=== PATIENT | male | born 1985 ===

== ENCOUNTER 2019-08-17 16:27 | Emergency (ER) | payer SELFPAY ==
[~2019-08-17] VITALS: Ht 182.8 cm; Wt 90.7 kg
[2019-08-17] MEDS ORDERED: TETANUS,DIPTH,PERTUSS P/F (BOOSTRIX) 0.5 ML VIAL IM ONE (17:00)
--- NOTE | 2019-08-17 17:00 | ED Upper Extremity ---
General Chief Complaint: Laceration Stated Complaint: L ARM LAC Source: patient Exam Limitations: no limitations History of Present Illness Date Seen by Provider: Aug 17, 2019 Time Seen by Provider: 16:59 Initial Comments To ER with a laceration to the volar proximal left forearm from a jacob knife while working on his own roof at home. Tetanus not up-to-date. Onset: just prior to arrival Severity: moderate Pain/Injury Location: left wrist Method of Injury: unknown Allergies and Home Medications Allergies Coded Allergies: No Known Drug Allergies (Unverified , 08/17/19) Home Medications Cephalexin 500 Mg Capsule, 500 MG PO TID Prescribed by: CLARICE SILVA on 08/17/19 [id number] Patient Home Medication List Home Medication List Reviewed: Yes Review of Systems Constitutional: see HPI EENTM: see HPI Respiratory: no symptoms reported Cardiovascular: no symptoms reported Genitourinary: no symptoms reported Musculoskeletal: see HPI Skin: see HPI Psychiatric/Neurological: No Symptoms Reported Past Hqsrieo-Dxgkqy-Oguacx Hx Patient Social History Recent Foreign Travel: No Contact w/Someone Who Travel: No Physical Exam Vital Signs Vital Signs - First Documented 08/17/19 16:30 Temp 36.5 Pulse 75 Resp 16 B/P (MAP) 132/86 (101) Pulse Ox 99 O2 Delivery Room Air Capillary Refill : Height, Weight, BMI Height: '" Weight: lbs. oz. kg; BMI Method: General Appearance: WD/WN, no apparent distress Neck: non-tender, full range of motion Respiratory: no respiratory distress, no accessory muscle use Gastrointestinal: normal bowel sounds, non tender Back: no vertebral tenderness Shoulder: normal inspection, non-tender Elbow/Forearm: Left, soft tissue tenderness (R proximal left forearm there is about a 1.5 severe laceration down to the subcutaneous tissue and likely down to the muscle but I'm not able to visualize this. I suspect muscle involvement because there seems to be a bit of swelling proximal to this consistent with a little hematoma. No foreign body identified. Wound irrigated with 100 mL of saline. Sutured with 3 simple interrupted sutures size 4-0 Prolene. Strong radial and ulnar pulses, 2+. Normal flexion of the wrist and each finger. Used stratus language line for translation while obtaining history of present illness and physical exam.) Wrist: Yes normal inspection, Yes non-tender Hand: normal inspection, non-tender, Left Neurologic/Psychiatric: alert, normal mood/affect, oriented x 3 Skin: normal color, warm/dry Procedures/Interventions Wound Location: Upper Extremities Wound Length (cm): 1.5 Wound's Depth, Shape: linear, sub Q Wound Explored: clean Irrigated w/ Saline (ccs): 100 Anesthesia: 1% Lidocaine Volume Anesthetic (ccs): 3 Suture: Prolene Suture Size: 4-0 Number of Sutures: 3 Layer Closure?: 1 Number Deep Layer Sutures: 0 Progress/Results/Core Measures Results/Orders My Orders Orders - CLARICE SILVA APRN Dipht,Pertuss(Acell),Tet Adult (Boostrix (08/17/19 17:00) Vital Signs/I&O Departure Impression Primary Impression: Laceration of arm Qualified Codes: S41.112A - Laceration without foreign body of left upper arm, initial encounter Disposition: 01 HOME, SELF-CARE Condition: Stable Departure-Patient Inst. Decision time for Depature: 17:07 Referrals: NO,LOCAL PHYSICIAN (PCP/Family) Primary Care Physician Patient Instructions: Laceration Repair With Stitches (DC) Add. Discharge Instructions: 1. Return to ER for any concerns 2. Return to ER in 10 days to have the stitches removed. Take antibiotics as directed All discharge instructions reviewed with patient and/or family. Voiced understanding. Scripts Cephalexin (Keflex) 500 Mg Capsule 500 MG PO TID, #9 CAP Prov: CLARICE SILVA APRN 08/17/19 CLARICE SILVA APRN Aug 17, 2019 17:00
[2019-08-17] MEDS ORDERED: CEPH-507 PO (17:09)
[2019-08-17 17:20] VITALS: BP 132/86
== END 2019-08-17 17:20 | disposition home or self-care (01) ==
LOC: ER 16:29
DX: S51.812A Laceration without foreign body of left forearm, initial encounter (principal); W26.0XXA Contact with knife, initial encounter; Y93.H3 Activity, building and construction; Y92.018 Other place in single-family (private) house as the place of occurrence of the external cause; Z23 Encounter for immunization
CPT/HCPCS: 12001; 90715